=== PATIENT | female | born 1940 | race Caucasian/White ===

== ENCOUNTER → 2025-07-03 | Outpatient (CLI) | payer MEDICARE, OTHER ==
[~2025-07-03] MED LIST: AMLODIPINE BESYL5 MG PO; ATARAX,VISTARIL10 MG PO; DULOXETINE HCL60 MG PO; Lopressor25 MG PO; MUCUS RELIEF E600 MG PO; NORVASC5 MG PO; PREDNISONE10 MG PO; REMERON15 M2 PO; VITAMIN D250 MCG PO; VITAMIN D350 MC3 PO; ZESTRIL20 MG PO; ZITHROMAX250 MG PO
== END ==
LOC: RAD 12:19
PROVIDERS: ATTEND Family Medicine
DX: M19.071 Primary osteoarthritis, right ankle and foot (principal); M16.11 Unilateral primary osteoarthritis, right hip; M17.11 Unilateral primary osteoarthritis, right knee; M77.51 Other enthesopathy of right foot and ankle; M79.89 Other specified soft tissue disorders; M79.604 Pain in right leg

== ENCOUNTER 2025-10-26 13:39 | Emergency (ER) | payer MEDICARE, OTHER ==
[~2025-10-26] VITALS: Wt 67.1 kg
== END 2025-10-26 16:19 | disposition home or self-care (01) ==
LOC: ED 13:39
DX: R05.9 Cough, unspecified (principal); T50.995A Adverse effect of other drugs, medicaments and biological substances, initial encounter; I10 Essential (primary) hypertension; Z98.890 Other specified postprocedural states; Z88.8 Allergy status to other drugs, medicaments and biological substances; Z91.030 Bee allergy status; Y92.89 Other specified places as the place of occurrence of the external cause

== ENCOUNTER 2025-11-08 01:16 | Emergency (ER) | payer MEDICARE, OTHER ==
[~2025-11-08] VITALS: Ht 165.1 cm; Wt 63.5 kg
[2025-11-08] MEDS ORDERED: SODIUM CHLORIDE 0.9% 500 ML IV ONE (02:30)
[2025-11-08] MEDS ORDERED: Ondansetron Hydrochloride 4 MG/2 ML VIAL IV ONE (02:30)
[2025-11-08 02:45] LABS: BASO # 0.0 10*3/uL (0.0-0.1); BASO % 0.6 % (0.0-1.0); EOS # 0.6 10*3/uL (0.0-0.4); EOS % 8.2 % (1.0-4.0); MEAN CELL VOLUME 89.2 fl (81.0-99.0); MEAN CORPUSCULAR HGB 30.2 pg (27.0-31.0); MEAN PLATELET VOLUME 9.4 fl (9.6-12.3); MONO # 0.7 10*3/uL (0.1-1.0); MONO % 9.3 % (3.0-9.0); NEUT # 5.0 10*3/uL (2.3-7.9); NEUT % 69.4 % (47.0-73.0); NUCLEATED RED BLOOD CELL 0.0 % (0.0-0.0); NUCLEATED RED BLOOD CELL 0.0 10*3/uL (0.0-0.0); PLATELET COUNT AUTOMATED 190 10*3/uL (130-400); RED CELL DISTRI WIDTH 12.2 % (0-14.5)
[2025-11-08 03:04] LABS: BUN 15 mg/dl (9-23)
[2025-11-08 04:54] LABS: BILIRUBIN Negative (Negative); BLOOD Negative (Negative); CLARITY Clear (Clear); COLOR Yellow (Yellow); KETONE Negative (Negative); LEUKO ESTERASE 2+ (Negative); NITRITE Negative (Negative); PH 6.5 (4.5-8.0); SPECIFIC GRAVITY <= 1.005 (1.001-1.030); UROBILINOGEN 0.2 E.U./dl (0.0-1.0)
[2025-11-08 05:13] LABS: WBC 16-20 wbc/hpf (0-5)
[2025-11-08] MEDS ORDERED: HYDROCORTISONE 30 GM TUBE T ONE (06:50)
== END 2025-11-08 07:00 | disposition home or self-care (01) ==
LOC: ED 01:16
PROVIDERS: Emergency Medicine
DX: R11.2 Nausea with vomiting, unspecified (principal); N18.30 Chronic kidney disease, stage 3 unspecified; Z91.030 Bee allergy status; Z88.8 Allergy status to other drugs, medicaments and biological substances; Z79.899 Other long term (current) drug therapy